=== PATIENT | male | born 1945 | race Caucasian/White ===

== ENCOUNTER 2021-02-14 14:59 | Emergency (ER) | payer MEDICARE ==
[2021-02-14] MEDS ORDERED: traMADol HCl 50 MG TAB ONE (15:30)
== END 2021-02-14 16:46 | disposition home or self-care (01) ==
LOC: ERS 14:59
DX: S20.212A Contusion of left front wall of thorax, initial encounter (principal); Z86.718 Personal history of other venous thrombosis and embolism; Z79.01 Long term (current) use of anticoagulants; Z87.891 Personal history of nicotine dependence; Z79.899 Other long term (current) drug therapy; Z85.72 Personal history of non-Hodgkin lymphomas; W19.XXXA Unspecified fall, initial encounter
CPT/HCPCS: 71045; 99281

== ENCOUNTER 2021-09-26 09:56 | Outpatient (CLI) | payer MEDICARE | END 2021-09-26 09:57 | disposition home or self-care (01) | LOC: RAD 09:56 | PROVIDERS: ATTEND Internal Medicine Critical Care Medicine | DX: R06.00 Dyspnea, unspecified (principal) | CPT/HCPCS: 71046 ==

== ENCOUNTER 2022-05-30 10:01 | Inpatient (IN) | payer MEDICARE ==
[2022-05-30 11:13] LABS: ALT (SGPT) 11 U/L (8-55); AST (SGOT) 14 U/L (5-34); Albumin 3.6 g/dL (3.4-4.8); Alkaline Phosphatase 52 U/L (40-110); Anion Gap 16 mmol/L (10-20); BUN (Urea Nitrogen) 25 mg/dL (8.4-25.7); Bilirubin, Total 1.3 mg/dL (0.2-1.2); Calc. Creatinine Clearance 0 mL/min (70-130); Calcium 8.6 mg/dL (7.8-10.44); Carbon Dioxide 20 mmol/L (23-31); Chloride 107 mmol/L (98-107); Estimated GFR 51; Globulin 1.6 g/dL (2.4-3.5); Glucose 126 mg/dL (83-110); Potassium 4.1 mmol/L (3.5-5.1); Protein, Total 5.2 g/dL (5.8-8.1); Sodium 139 mmol/L (136-145)
[2022-05-30 11:31] LABS: Hemoglobin 13.6 g/dL (14.0-18.0); Mean Corpuscular HGB CONC 32.4 g/dL (32.0-36.0); Mean Corpuscular Hemoglobin 33.5 pg (27.0-31.0); Mean Platelet Volume 8.9 fL (7.4-10.4); Platelet Count 159 thou/uL (130-400); Red Blood Cell (RBC) Count 4.07 mill/uL (4.70-6.10); White Blood Cell (WBC) Count 6.2 thou/uL (4.8-10.8)
[2022-05-30 11:53] LABS: Eosinophils 2 % (0-10); Lymphocytes 18 % (21-51); MDiff Complete? YES; Macrocytosis SLIGHT = 6-15 cells (100X) (0-5/hpf); Monocytes 3 % (0-10); Neutrophil 55 % (42-75); Platelet Morphology Comment Appears Adequate; Polychromasia SLIGHT = 2-3 cells (100X) (0-2/hpf); Reactive Lymphocytes 22 % (0-10)
[2022-05-30] MEDS ORDERED: Enoxaparin Sodium 100 MG/ML SYRINGE ONE (12:56)
[2022-05-30 13:22] LABS: Bilirubin Negative (Negative); Blood, Urine Negative (Negative); Clarity Clear (Clear); Glucose, Urine (Dipstick) Normal (Negative); Ketone, Urine Negative (Negative); Leukocyte Negative Leu/uL (Negative); Nitrite Negative (Negative); Protein, Urine (Dipstick) Negative (Neg-Trace); Specific Gravity, Urine 1.009 (1.002-1.036); Urobilinogen Normal mg/dL (Less than 2)
[2022-05-30 13:30] LABS: INR-International Normal Ratio 1.3; PTT 24.7 sec (22.9-36.1)
[2022-05-30] MEDS ORDERED: Ondansetron PF 4 MG/2 ML Vial IVP PRN (15:15)
[2022-05-30] MEDS ORDERED: Acetaminophen 325 MG TAB PO PRN (15:15)
[2022-05-30] MEDS ORDERED: Ondansetron ODT 4 MG TAB SL PRN (15:15)
[2022-05-30 15:42] VITALS: BMI 32.5
[2022-05-30] MEDS: Sodium Chloride 0.9% 1,000 ML IV SCH (17:41)
[2022-05-30] MEDS ORDERED: IBRUTINIB 140 MG PO SCH (21:00)
[2022-05-30] MEDS: Enoxaparin Sodium 100 MG/ML SYRINGE SC SCH (21:23)
[2022-05-30] MEDS: Amoxicillin/Potassium Clav 250 MG TAB PO SCH (21:24)
[2022-05-31] MEDS: Sodium Chloride 0.9% 1,000 ML IV SCH ×2 (03:18→14:16)
[2022-05-31 05:19] LABS: Anion Gap 12 mmol/L (10-20); BUN (Urea Nitrogen) 17 mg/dL (8.4-25.7); Calc. Creatinine Clearance 87 mL/min (70-130); Calcium 8.2 mg/dL (7.8-10.44); Chloride 111 mmol/L (98-107); Estimated GFR 76; Glucose 130 mg/dL (83-110); Potassium 3.8 mmol/L (3.5-5.1); Sodium 142 mmol/L (136-145)
[2022-05-31 05:42] LABS: Carbon Dioxide 23 mmol/L (23-31)
[2022-05-31 05:43] LABS: Eosinophils 2 % (0-10); Hemoglobin 13.2 g/dL (14.0-18.0); Lymphocytes 33 % (21-51); MDiff Complete? YES; Mean Corpuscular HGB CONC 33.2 g/dL (32.0-36.0); Mean Corpuscular Hemoglobin 34.3 pg (27.0-31.0); Mean Platelet Volume 8.8 fL (7.4-10.4); Monocytes 13 % (0-10); Neutrophil 42 % (42-75); Platelet Count 164 thou/uL (130-400); Platelet Morphology Comment Appears Adequate; RBC Distribution Width 12.2 % (11.5-14.5); RBC Morphology Normal; Reactive Lymphocytes 10 % (0-10); Red Blood Cell (RBC) Count 3.86 mill/uL (4.70-6.10); White Blood Cell (WBC) Count 5.9 thou/uL (4.8-10.8)
[2022-05-31] MEDS: Amoxicillin/Potassium Clav 250 MG TAB PO SCH ×3 (06:22→20:26)
[2022-05-31] MEDS: Enoxaparin Sodium 100 MG/ML SYRINGE SC SCH ×2 (10:56→20:26)
[2022-05-31] MEDS: Saccharomyces boulardii 250 MG CAP PO SCH (10:57)
[2022-05-31] MEDS ORDERED: Warfarin Sodium 7.5 MG TAB PO SCH (17:15)
[2022-05-31] MEDS: Melatonin 3 MG TAB PO SCH (20:26)
[2022-06-01] MEDS: Sodium Chloride 0.9% 1,000 ML IV SCH ×3 (00:14→14:21)
[2022-06-01 04:33] LABS: INR-International Normal Ratio 1.2; Prothrombin Time 15.5 sec (12.0-14.7)
[2022-06-01 04:50] LABS: Anion Gap 11 mmol/L (10-20); BUN (Urea Nitrogen) 17 mg/dL (8.4-25.7); Calc. Creatinine Clearance 99 mL/min (70-130); Calcium 8.7 mg/dL (7.8-10.44); Carbon Dioxide 24 mmol/L (23-31); Chloride 111 mmol/L (98-107); Estimated GFR 89; Glucose 81 mg/dL (83-110); Sodium 141 mmol/L (136-145)
[2022-06-01 05:06] LABS: Eosinophils 6 % (0-10); Lymphocytes 52 % (21-51); MDiff Complete? YES; Macrocytosis SLIGHT = 6-15 cells (100X) (0-5/hpf); Mean Corpuscular HGB CONC 32.8 g/dL (32.0-36.0); Mean Corpuscular Hemoglobin 34.4 pg (27.0-31.0); Monocytes 7 % (0-10); Neutrophil 32 % (42-75); Platelet Count 155 thou/uL (130-400); RBC Distribution Width 12.3 % (11.5-14.5); Red Blood Cell (RBC) Count 3.79 mill/uL (4.70-6.10); White Blood Cell (WBC) Count 6.2 thou/uL (4.8-10.8)
[2022-06-01] MEDS: Amoxicillin/Potassium Clav 250 MG TAB PO SCH ×4 (05:37→22:37)
[2022-06-01] MEDS ORDERED: Warfarin Sodium 5 MG TAB PO SCH (08:30)
[2022-06-01] MEDS: Enoxaparin Sodium 100 MG/ML SYRINGE SC SCH ×3 (10:22→22:36)
[2022-06-01] MEDS: Tamsulosin HCl 0.4 MG CAP PO SCH (10:22)
[2022-06-01] MEDS: Saccharomyces boulardii 250 MG CAP PO SCH (10:22)
[2022-06-01] MEDS ORDERED: Warfarin Sodium 7.5 MG TAB PO SCH (17:00)
[2022-06-01] MEDS: Melatonin 3 MG TAB PO SCH (21:55)
[2022-06-02] MEDS: Sodium Chloride 0.9% 1,000 ML IV SCH ×3 (00:45→23:40)
[2022-06-02 06:13] LABS: INR-International Normal Ratio 1.3
[2022-06-02] MEDS: Amoxicillin/Potassium Clav 250 MG TAB PO SCH ×3 (06:18→20:32)
[2022-06-02 06:27] LABS: Anion Gap 14 mmol/L (10-20); BUN (Urea Nitrogen) 16 mg/dL (8.4-25.7); Burr Cells SLIGHT = 2-5 cells (100X) (0-1/hpf); Calc. Creatinine Clearance 107 mL/min (70-130); Calcium 8.5 mg/dL (7.8-10.44); Carbon Dioxide 20 mmol/L (23-31); Chloride 109 mmol/L (98-107); Eosinophils 3 % (0-10); Estimated GFR 91; Glucose 81 mg/dL (83-110); Hemoglobin 13.1 g/dL (14.0-18.0); Lymphocytes 39 % (21-51); MDiff Complete? YES; Macrocytosis MODERATE=16-30 cells (100X) (0-5/hpf); Mean Corpuscular Hemoglobin 33.1 pg (27.0-31.0); Mean Platelet Volume 8.7 fL (7.4-10.4); Metamyelocyte 1 % (0-0); Monocytes 8 % (0-10); Neutrophil 47 % (42-75); Ovalocytes SLIGHT = 2-5 cells (100X) (0-1/hpf); Platelet Count 144 thou/uL (130-400); Platelet Morphology Comment Appears Adequate; RBC Distribution Width 12.2 % (11.5-14.5); Reactive Lymphocytes 1 % (0-10); Red Blood Cell (RBC) Count 3.97 mill/uL (4.70-6.10); Sodium 139 mmol/L (136-145); White Blood Cell (WBC) Count 6.4 thou/uL (4.8-10.8)
[2022-06-02] MEDS: Tamsulosin HCl 0.4 MG CAP PO SCH (10:09)
[2022-06-02] MEDS: Enoxaparin Sodium 100 MG/ML SYRINGE SC SCH ×2 (10:09→20:32)
[2022-06-02] MEDS: Saccharomyces boulardii 250 MG CAP PO SCH (10:09)
[2022-06-02] MEDS: Melatonin 3 MG TAB PO SCH (20:32)
[2022-06-03] MEDS: Amoxicillin/Potassium Clav 250 MG TAB PO SCH ×2 (05:08→14:08)
[2022-06-03] MEDS: Saccharomyces boulardii 250 MG CAP PO SCH (08:17)
[2022-06-03] MEDS: Tamsulosin HCl 0.4 MG CAP PO SCH (08:17)
[2022-06-03] MEDS ORDERED: Apixaban 5 MG TAB PO SCH (09:00)
[2022-06-03 09:02] VITALS: BP 151/74; TEMP 97.7
[2022-06-03 09:43] LABS: Anion Gap 11 mmol/L (10-20); BUN (Urea Nitrogen) 13 mg/dL (8.4-25.7); Calc. Creatinine Clearance 107 mL/min (70-130); Carbon Dioxide 26 mmol/L (23-31); Chloride 108 mmol/L (98-107); Estimated GFR 91; Glucose 92 mg/dL (83-110); Sodium 141 mmol/L (136-145)
[2022-06-03 10:13] LABS: INR-International Normal Ratio 1.4
[2022-06-03 10:33] LABS: Band 1 % (5-11); Eosinophils 1 % (0-10); Hemoglobin 13.7 g/dL (14.0-18.0); Lymphocytes 34 % (21-51); MDiff Complete? YES; Mean Corpuscular HGB CONC 32.5 g/dL (32.0-36.0); Mean Corpuscular Hemoglobin 33.6 pg (27.0-31.0); Mean Platelet Volume 8.7 fL (7.4-10.4); Monocytes 2 % (0-10); Neutrophil 35 % (42-75); Platelet Count 143 thou/uL (130-400); RBC Distribution Width 12.3 % (11.5-14.5); RBC Morphology Normal; Reactive Lymphocytes 27 % (0-10); Red Blood Cell (RBC) Count 4.06 mill/uL (4.70-6.10); White Blood Cell (WBC) Count 5.4 thou/uL (4.8-10.8)
[2022-06-03 10:34] LABS: Reflex for Review?? YES
== END 2022-06-03 16:38 | disposition home or self-care (01) | DRG 300 ==
LOC: ERS 10:01 → 2NO 13:46 → OBSVTOIN 05-31 17:31 → T4-A 06-01 15:36
PROVIDERS: ADMIT Internal Medicine; ATTEND Internal Medicine
DX: I82.411 Acute embolism and thrombosis of right femoral vein (principal); C85.90 Non-Hodgkin lymphoma, unspecified, unspecified site; N17.9 Acute kidney failure, unspecified; L03.114 Cellulitis of left upper limb; H81.10 Benign paroxysmal vertigo, unspecified ear; Z20.822 Contact with and (suspected) exposure to COVID-19; E86.0 Dehydration; Z86.711 Personal history of pulmonary embolism; Z79.01 Long term (current) use of anticoagulants; Z88.8 Allergy status to other drugs, medicaments and biological substances; Z79.899 Other long term (current) drug therapy; Z79.02 Long term (current) use of antithrombotics/antiplatelets; Z90.49 Acquired absence of other specified parts of digestive tract; Z90.09 Acquired absence of other part of head and neck; Z98.890 Other specified postprocedural states
CPT/HCPCS: 36415; 71045; 78451; 80048; 80053; 81003; 83605; 83735; 83880; 84443; 84484; 85025; 85060; 85379; 85610; 85730; 87040; 87086; 93005; 93306; 96372; A9540; G0378; J1650; J7050; U0003; U0005

== ENCOUNTER 2022-12-11 09:06 | Emergency (ER) | payer MEDICARE, OTHER ==
[2022-12-11 10:10] LABS: Hemoglobin 13.5 g/dL (14.0-18.0); Mean Corpuscular HGB CONC 32.6 g/dL (32.0-36.0); Mean Corpuscular Hemoglobin 33.1 pg (27.0-31.0); Mean Platelet Volume 8.3 fL (7.4-10.4); Platelet Count 166 10x3/uL (130-400); Red Blood Cell (RBC) Count 4.07 mill/uL (4.70-6.10); White Blood Cell (WBC) Count 5.7 10x3/uL (4.8-10.8)
[2022-12-11 10:26] LABS: ALT (SGPT) 11 U/L (8-55); AST (SGOT) 12 U/L (5-34); Albumin 3.4 g/dL (3.4-4.8); Alkaline Phosphatase 51 U/L (40-110); Anion Gap 11 mmol/L (10-20); BUN (Urea Nitrogen) 25 mg/dL (8.4-25.7); Bilirubin, Total 1.1 mg/dL (0.2-1.2); Calc. Creatinine Clearance 0 mL/min (70-130); Calcium 9.1 mg/dL (7.8-10.44); Carbon Dioxide 24 mmol/L (23-31); Chloride 105 mmol/L (98-107); Estimated GFR 71; Globulin 1.9 g/dL (2.4-3.5); Glucose 102 mg/dL (83-110); Potassium 4.4 mmol/L (3.5-5.1); Protein, Total 5.3 g/dL (5.8-8.1); Sodium 136 mmol/L (136-145)
[2022-12-11 10:34] LABS: Eosinophils 1 % (0-10); Lymphocytes 51 % (21-51); MDiff Complete? YES; Macrocytosis MODERATE=16-30 cells (100X) (0-5/hpf); Monocytes 11 % (0-10); Neutrophil 30 % (42-75); Platelet Morphology Comment Appears Adequate; Reactive Lymphocytes 7 % (0-10)
== END 2022-12-11 12:17 | disposition home or self-care (01) ==
LOC: ERS 09:06
DX: M62.81 Muscle weakness (generalized) (principal); E78.5 Hyperlipidemia, unspecified; I10 Essential (primary) hypertension; Z87.891 Personal history of nicotine dependence
CPT/HCPCS: 36415; 71045; 80053; 83880; 84484; 85025; 93005

== ENCOUNTER 2024-08-29 10:25 | Outpatient (CLI) | payer MEDICARE | END 2024-08-29 10:26 | disposition home or self-care (01) | LOC: RAD 10:25 | PROVIDERS: ATTEND Internal Medicine Critical Care Medicine | DX: R06.00 Dyspnea, unspecified (principal) | CPT/HCPCS: 71046 ==

== ENCOUNTER 2024-10-14 20:36 | Emergency (ER) | payer MEDICARE ==
[2024-10-14 22:52] LABS: Hematocrit 44.7 % (42.0-52.0); Hemoglobin 14.9 g/dL (14.0-18.0); Mean Corpuscular HGB CONC 33.3 g/dL (32.0-36.0); Mean Corpuscular Hemoglobin 32.9 pg (27.0-31.0); Mean Corpuscular Volume 98.7 fL (78.0-98.0); Mean Platelet Volume 9.6 fL (7.4-10.4); Platelet Count 150 10x3/uL (130-400); RBC Distribution Width 13.1 % (11.5-14.5); Red Blood Cell (RBC) Count 4.53 mill/uL (4.70-6.10)
[2024-10-14 23:05] LABS: ALT (SGPT) 19 U/L (8-55); AST (SGOT) 22 U/L (5-34); Albumin 3.9 g/dL (3.4-4.8); Alkaline Phosphatase 79 U/L (40-110); Anion Gap 15 mmol/L (10-20); BUN (Urea Nitrogen) 18 mg/dL (8.4-25.7); Bilirubin, Total 0.4 mg/dL (0.2-1.2); Calc. Creatinine Clearance 0 mL/min (70-130); Calcium 9.6 mg/dL (7.8-10.44); Carbon Dioxide 25 mmol/L (23-31); Chloride 102 mmol/L (98-107); Estimated GFR 88; Globulin 2.4 g/dL (2.4-3.5); Glucose 92 mg/dL (83-110); Potassium 4.2 mmol/L (3.5-5.1); Protein, Total 6.3 g/dL (5.8-8.1); Sodium 138 mmol/L (136-145)
[2024-10-14 23:11] LABS: Band 3 % (5-11); Eosinophils 1 % (0-10); Large Platelets 10.7 % (0-5); Lymphocytes 23 % (21-51); Monocytes 15 % (0-10); Neutrophil 51 % (42-75); Platelet Adequacy Comment Platelets Normal; Polychromasia SLIGHT = 2-3 cells HPF (0-2); Reactive Lymphocytes 7 % (0-10)
[2024-10-15] MEDS ORDERED: Bacitracin 1 PK ONE (00:14)
== END 2024-10-15 00:18 | disposition home or self-care (01) ==
LOC: ERS 20:36
DX: S80.11XA Contusion of right lower leg, initial encounter (principal); I10 Essential (primary) hypertension; X58.XXXA Exposure to other specified factors, initial encounter; Z87.891 Personal history of nicotine dependence
CPT/HCPCS: 27301; 36415; 80053; 83605; 85025; 99283

== ENCOUNTER 2024-12-04 17:33 | Emergency (ER) | payer MEDICARE ==
[2024-12-04] MEDS ORDERED: Ipratropium/Albuterol 3 ML NEB ONE (18:36)
[2024-12-04] MEDS ORDERED: methylPREDNISolone Sod Succ/PF 125 MG/2 ML VIAL ONE (18:37)
[2024-12-04 19:07] LABS: #Basophils Less than 0.03 10x3/uL (0.0-0.2); #Eosinophils Less than 0.03 10x3/uL (0.0-0.7); %Basophils 0.3 % (0.0-1.0); %Monocytes 13.6 % (0.0-10.0); %Neutrophils 69.6 % (42.0-75.0); Hematocrit 36.7 % (42.0-52.0); Hemoglobin 12.2 g/dL (14.0-18.0); Mean Corpuscular HGB CONC 33.2 g/dL (32.0-36.0); Mean Corpuscular Hemoglobin 33.5 pg (27.0-31.0); Mean Corpuscular Volume 100.8 fL (78.0-98.0); Platelet Count 140 10x3/uL (130-400); RBC Distribution Width 14.5 % (11.5-14.5); Red Blood Cell (RBC) Count 3.64 mill/uL (4.70-6.10)
[2024-12-04 19:18] LABS: ALT (SGPT) 30 U/L (8-55); AST (SGOT) 29 U/L (5-34); Albumin 2.9 g/dL (3.4-4.8); Alkaline Phosphatase 85 U/L (40-110); Anion Gap 12 mmol/L (10-20); BUN (Urea Nitrogen) 19 mg/dL (8.4-25.7); Bilirubin, Total 0.6 mg/dL (0.2-1.2); Calc. Creatinine Clearance 0 mL/min (70-130); Calcium 8.7 mg/dL (7.8-10.44); Carbon Dioxide 21 mmol/L (23-31); Chloride 107 mmol/L (98-107); Estimated GFR 88; Globulin 2.7 g/dL (2.4-3.5); Glucose 92 mg/dL (83-110); Protein, Total 5.6 g/dL (5.8-8.1); Sodium 136 mmol/L (136-145)
== END 2024-12-04 23:28 | disposition home or self-care (01) ==
LOC: ERS 17:33
DX: J18.9 Pneumonia, unspecified organism (principal); J44.9 Chronic obstructive pulmonary disease, unspecified; E78.5 Hyperlipidemia, unspecified; I10 Essential (primary) hypertension; Z87.891 Personal history of nicotine dependence; Z79.899 Other long term (current) drug therapy
CPT/HCPCS: 71045; 80053; 85025; 93005; 94760; J2919; 36415; 96374; J7620

== ENCOUNTER 2024-12-18 20:19 | Inpatient (IN) | payer MEDICARE ==
[2024-12-18 21:53] LABS: Bacteria/HPF None Seen HPF (None Seen); Bilirubin Negative (Negative); Blood, Urine Negative (Negative); CAUTI Indications for Culture Alt mental st,lethar; Clarity Clear (Clear); Glucose, Urine (Dipstick) Normal (Negative); Ketone, Urine Negative (Negative); Leukocyte Negative Leu/uL (Negative); Nitrite Negative (Negative); Protein, Urine (Dipstick) Negative (Neg-Trace); RBC/HPF 0-3 HPF (0-3); Specific Gravity, Urine 1.012 (1.002-1.036); Squamous Epithelial 0-3 HPF (0-3); Urobilinogen Normal mg/dL (Less than 2); WBC/HPF 0-3 HPF (0-3)
[2024-12-18 21:58] LABS: Urine Culture Reflex No No
[2024-12-18] MEDS ORDERED: Acetaminophen 500 MG TAB ONE (22:09)
[2024-12-18] MEDS ORDERED: Cefepime 1 GM VIAL ONE (22:09)
[2024-12-18] MEDS ORDERED: Haloperidol Lactate 5 MG/ML VIAL ONE (22:19)
[2024-12-18 22:29] LABS: #Basophils Less than 0.03 10x3/uL (0.0-0.2); #Eosinophils Less than 0.03 10x3/uL (0.0-0.7); %Basophils 0.1 % (0.0-1.0); %Lymphocytes 2.1 % (21.0-51.0); %Monocytes 5.8 % (0.0-10.0); %Neutrophils 91.6 % (42.0-75.0); Hematocrit 40.5 % (42.0-52.0); Hemoglobin 13.7 g/dL (14.0-18.0); Mean Corpuscular HGB CONC 33.8 g/dL (32.0-36.0); Mean Corpuscular Hemoglobin 33.5 pg (27.0-31.0); Mean Platelet Volume 9.4 fL (7.4-10.4); Platelet Count 174 10x3/uL (130-400); RBC Distribution Width 14.7 % (11.5-14.5); Red Blood Cell (RBC) Count 4.09 mill/uL (4.70-6.10)
[2024-12-18 22:44] LABS: ALT (SGPT) 42 U/L (Less than 45); AST (SGOT) 40 U/L (11-34); Albumin 3.6 g/dL (3.1-4.5); Alkaline Phosphatase 91 U/L (40-110); Anion Gap 15 mmol/L (10-20); BUN (Urea Nitrogen) 18 mg/dL (8.4-25.7); Bilirubin, Total 1.3 mg/dL (0.3-1.2); Calc. Creatinine Clearance 0 mL/min (70-130); Carbon Dioxide 19 mmol/L (23-31); Chloride 109 mmol/L (98-107); Estimated GFR 80; Globulin 2.4 g/dL (2.4-3.5); Glucose 92 mg/dL (83-110); Lipase 19 U/L (8-78); Magnesium 1.6 mg/dL (1.6-2.6); Potassium 4.3 mmol/L (3.5-5.1); Sodium 139 mmol/L (136-145)
[2024-12-18 22:48] LABS: Troponin I 0.011 ng/mL (< 0.028)
[2024-12-19] MEDS ORDERED: Ondansetron ODT 4 MG TAB PO PRN (01:17)
[2024-12-19] MEDS ORDERED: Ondansetron PF 4 MG/2 ML Vial IVP PRN (01:17)
[2024-12-19] MEDS ORDERED: Acetaminophen 650 MG Suppository PR PRN (01:17)
[2024-12-19 02:46] VITALS: BMI 28.0
[2024-12-19] MEDS ORDERED: Acetaminophen 325 MG TAB ONE (03:41)
[2024-12-19] MEDS: Acetaminophen 325 MG TAB PO PRN (03:49)
[2024-12-19 05:23] LABS: #Basophils Less than 0.03 10x3/uL (0.0-0.2); #Eosinophils Less than 0.03 10x3/uL (0.0-0.7); %Basophils 0.2 % (0.0-1.0); %Lymphocytes 4.4 % (21.0-51.0); %Monocytes 7.3 % (0.0-10.0); %Neutrophils 87.7 % (42.0-75.0); Hematocrit 36.5 % (42.0-52.0); Mean Corpuscular HGB CONC 32.9 g/dL (32.0-36.0); Mean Corpuscular Volume 100.3 fL (78.0-98.0); Mean Platelet Volume 9.6 fL (7.4-10.4); Platelet Count 147 10x3/uL (130-400); RBC Distribution Width 14.8 % (11.5-14.5); Red Blood Cell (RBC) Count 3.64 mill/uL (4.70-6.10)
[2024-12-19 05:45] LABS: ALT (SGPT) 34 U/L (Less than 45); AST (SGOT) 26 U/L (11-34); Albumin 2.8 g/dL (3.1-4.5); Alkaline Phosphatase 73 U/L (40-110); Anion Gap 12 mmol/L (10-20); BUN (Urea Nitrogen) 15 mg/dL (8.4-25.7); Bilirubin, Total 1.2 mg/dL (0.3-1.2); Calc. Creatinine Clearance 97 mL/min (70-130); Carbon Dioxide 18 mmol/L (23-31); Chloride 115 mmol/L (98-107); Estimated GFR 92; Glucose 97 mg/dL (83-110); Potassium 3.8 mmol/L (3.5-5.1); Protein, Total 4.8 g/dL (5.8-8.1); Sodium 141 mmol/L (136-145)
[2024-12-19] MEDS: Vancomycin (BATCH) 1.75 GM in Premix 1 BAG IVPB SCH (06:03)
[2024-12-19] MEDS: Lactated Ringer's 500 ML IV SCH (06:04)
[2024-12-19] MEDS ORDERED: VENETOCLAX 100 MG PO SCH (09:00)
[2024-12-19] MEDS ORDERED: Vancomycin 1.5 GRAM/300 ML BAG IVPB SCH (09:00)
[2024-12-19] MEDS ORDERED: ACALABRUTINIB MALEATE 100 MG PO SCH (09:00)
[2024-12-19] MEDS ORDERED: Atorvastatin Calcium 20 MG TAB ONE (09:15)
[2024-12-19] MEDS ORDERED: Apixaban 5 MG TAB ONE (09:15)
[2024-12-19] MEDS ORDERED: Cefepime 1 GM VIAL ONE (09:16)
[2024-12-19] MEDS ORDERED: Famotidine 20 MG TAB ONE (09:16)
[2024-12-19] MEDS: Cefepime 1 GM in Sodium Chloride 0.9% 100 ML IVPB SCH (09:25)
[2024-12-19] MEDS ORDERED: Sodium Chloride 0.9% 100 ML ONE (09:25)
[2024-12-19] MEDS: Famotidine 20 MG TAB PO SCH (09:25)
[2024-12-19] MEDS: Atorvastatin Calcium 20 MG TAB PO SCH (09:25)
[2024-12-19] MEDS: Famotidine/PF 20 mg/2ml Vial SLOW IVP SCH (09:25)
[2024-12-19] MEDS: Apixaban 5 MG TAB PO SCH (09:25)
[2024-12-19] MEDS ORDERED: Senokot S 8.6-50 MG TAB PO PRN (11:08)
[2024-12-19] MEDS ORDERED: Vancomycin 1 GM/200 ML (FROZEN) BAG ONE (12:12)
[2024-12-19] MEDS: Metoprolol Succinate XL 25 MG ER.TAB PO SCH (12:15)
[2024-12-19] MEDS: Vancomycin 1 GM in Premix 1 BAG IVPB SCH (12:15)
[2024-12-19 17:07] LABS: Legionella Urinary Ag Negative (Negative); Strep pneumo Urine Ag NEGATIVE (NEGATIVE)
[2024-12-19] MEDS ORDERED: Tamsulosin HCl 0.4 MG CAP PO SCH (21:00)
[2024-12-19] MEDS: Melatonin 3 MG TAB PO SCH (21:53)
[2024-12-19] MEDS: Cefepime 2 GM in Sodium Chloride 0.9% 100 ML IVPB SCH (21:55)
[2024-12-20 04:43] LABS: #Basophils Less than 0.03 10x3/uL (0.0-0.2); #Eosinophils Less than 0.03 10x3/uL (0.0-0.7); %Basophils 0.1 % (0.0-1.0); %Eosinophils 0.1 % (0.0-10.0); %Lymphocytes 8.1 % (21.0-51.0); %Monocytes 9.6 % (0.0-10.0); %Neutrophils 81.5 % (42.0-75.0); Hematocrit 31.9 % (42.0-52.0); Hemoglobin 10.8 g/dL (14.0-18.0); Mean Corpuscular HGB CONC 33.9 g/dL (32.0-36.0); Mean Corpuscular Hemoglobin 33.6 pg (27.0-31.0); Mean Corpuscular Volume 99.4 fL (78.0-98.0); Mean Platelet Volume 9.8 fL (7.4-10.4); Platelet Count 122 10x3/uL (130-400); RBC Distribution Width 14.9 % (11.5-14.5); Red Blood Cell (RBC) Count 3.21 mill/uL (4.70-6.10)
[2024-12-20 05:02] LABS: Vancomycin, Random 19.6 ug/mL (See Comment)
[2024-12-20 05:03] LABS: Anion Gap 10 mmol/L (10-20); BUN (Urea Nitrogen) 14 mg/dL (8.4-25.7); Calc. Creatinine Clearance 96 mL/min (70-130); Calcium 8.2 mg/dL (7.8-10.44); Carbon Dioxide 20 mmol/L (23-31); Chloride 111 mmol/L (98-107); Estimated GFR 91; Glucose 101 mg/dL (83-110); Potassium 3.6 mmol/L (3.5-5.1); Sodium 137 mmol/L (136-145)
[2024-12-20] MEDS: valACYclovir 500 MG TAB PO SCH (08:21)
[2024-12-20 14:18] VITALS: BMI 28.0
[2024-12-22 05:59] LABS: Vancomycin, Random 24.4 ug/mL (See Comment)
[2024-12-22] MEDS: Oseltamivir 75 MG CAP PO SCH (08:30)
[2024-12-24 07:33] VITALS: BP 148/72; TEMP 97.6
== END 2024-12-24 10:45 | disposition home or self-care (01) | DRG 871 ==
LOC: ERS 20:19 → MSONC 23:53 → ERHOLD 12-19 00:06 → MSONC 12-19 15:08 → T4-B 12-22 13:33
PROVIDERS: ADMIT Student in an Organized Health Care Education/Training Program; ATTEND Family Medicine
DX: A41.9 Sepsis, unspecified organism (principal); J10.01 Influenza due to other identified influenza virus with the same other identified influenza virus pneumonia; J96.01 Acute respiratory failure with hypoxia; C83.10 Mantle cell lymphoma, unspecified site; D84.9 Immunodeficiency, unspecified; M06.9 Rheumatoid arthritis, unspecified; E78.5 Hyperlipidemia, unspecified; I48.0 Paroxysmal atrial fibrillation; R45.1 Restlessness and agitation
CPT/HCPCS: 36415; 36416; 71045; 80048; 80053; 80202; 81001; 83605; 83690; 83735; 83880; 84484; 85025; 87040; 87070; 87205; 87428; 87449; 87633; 87899; 93005; 96365; 96366; 96367; J0692; J1630; J3370

== ENCOUNTER 2025-09-17 21:52 | Emergency (ER) | payer MEDICARE | END 2025-09-17 23:40 | disposition home or self-care (01) | LOC: ERS 21:52 | DX: S09.90XA Unspecified injury of head, initial encounter (principal); S00.212A Abrasion of left eyelid and periocular area, initial encounter; S60.417A Abrasion of left little finger, initial encounter; W01.198A Fall on same level from slipping, tripping and stumbling with subsequent striking against other object, initial encounter | CPT/HCPCS: 70450; 71045; 72170 ==